=== PATIENT | male | born 1990 | race Caucasian/White ===

== ENCOUNTER 2018-03-16 09:50 | Emergency (ER) | payer BC, OTHER ==
[~2018-03-16] VITALS: Ht 170.2 cm; Wt 70.3 kg
[2018-03-16 09:57] VITALS: BP 111/71
[2018-03-16] MEDS ORDERED: IBUPROFEN 600 MG TABLET PO ONE ×2 (10:00→10:02)
== END 2018-03-16 10:09 | disposition home or self-care (01) ==
LOC: ER 09:52
DX: F15.180 Other stimulant abuse with stimulant-induced anxiety disorder (principal); S40.012A Contusion of left shoulder, initial encounter; S80.211A Abrasion, right knee, initial encounter; F41.9 Anxiety disorder, unspecified; W10.8XXA Fall (on) (from) other stairs and steps, initial encounter; Y93.89 Activity, other specified; Y92.89 Other specified places as the place of occurrence of the external cause; Y99.8 Other external cause status
CPT/HCPCS: A4606; Z7610